=== PATIENT | female | born 1970 | race Caucasian/White ===

== ENCOUNTER 2022-09-19 02:45 | Outpatient (CLI) | payer MEDICARE, SELFPAY ==
--- NOTE | 2022-09-19 09:25 | DI.CTLCSR_ITS ---
Exam(s) CT CHEST LUNG CANCER SCREEN EXAM: CT CHEST LUNG CANCER SCREEN CLINICAL HISTORY: SCREENING FOR LUNG CA, CURRENT SMOKER, F17.210. TECHNIQUE: Imaging Protocol: Low Dose Technique CONTRAST MATERIAL: None COMPARISON: No exams were available for comparison FINDINGS: CHEST: LUNGS: There is patchy infiltrate in the anterior aspect of the right upper lobe. There is also a 7 millimeter subtle nodular infiltrate in the medial aspect of the right upper lobe adjacent to the rig ht side of the esophagus. There is mild bronchiectasis in the superior lingular segment of the left lung. No confluent infiltrate evident at this level. There are no pleural effusions on either side. No significant focal findings in the trachea and mainstem bronchi.. MEDIASTINUM: There is no obvious hilar nor mediastinal adenopathy. CARDIAC: Heart size is normal. There is no pericardial effusion.Diameter of the ascending thoracic a yuan is increased, measuring 4.3 cm. Requires follow-up. OTHER: Lower most image reveals a partially included exophytic abnormality off the lateral aspect of the right kidney, difficult to evaluate on this study given the resolution and this finding being onl y partially included in the field of view. OSSEOUS: No significant osseous lesions.. IMPRESSION: 1. Patchy right upper lobe infiltrate. Other findings as above. No pleural effusions nor obvious in trathoracic adenopathy. Recommend repeat CT scan in 6 months, earlier if clinically indicated. 2. Enlarged ascending thoracic aorta which measures 4.3 cm. Requires appropriate follow-up. Also ab normality off the lateral aspect of the right kidney which requires further workup starting with ultr asound. This was only partially included in the field of view of this chest CT scan. 3. Lung RADS Cat 3 - Probably Benign: Probably benign finding(s) - short term follow-up suggested; in clude nodules with a low likelihood of becoming a clinically active cancer. Lung-RADS 1.0 CATEGORIES: Category 0 - Prior chest CT exam(s) being located for comparison. Category 1 - Annual screening in 12 months. No nodules or definitely benign nodules. Category 2 - Annual screening in 12 months. Benign appearance. Nodules with low likelihood of becomin g active cancer. Category 3 - 6-month follow-up. Probably benign. Short-term follow-up suggested. Nodules with low lik elihood of becoming active cancer. Category 4A - 3-month follow-up and CT/PET if >8 mm in size. Suspicious finding. Findings which requi re additional testing. Category 4B - Findings which require additional testing and tissue sampling. Category 4X - Category 3 or 4 nodules with additional features or imaging findings that increases the suspicion of malignancy. Modifier S- Potentially clinically significant findings (non lung cancer) RADIATION DOSE DELIVERED: Total DLP DATA REPOSITORY: All CT scans at this facility are submitted to the National Radiology Data Registry (NRDR) Dose Index Registry (DIR) with the [employer] (A[employer]). RADIATION OPTIMIZATION: All CT scans at this facility use at least one of these dose optimization te chniques: automated exposure control; mA and/or kV adjustment per patient size (includes targeted exa ms where dose is matched to clinical indication); or iterative reconstruction.
== END 2022-09-19 03:05 ==
LOC: DI 02:46
PROVIDERS: PCP General Practice; Visit Provider Nurse Practitioner
DX: F17.210 Nicotine dependence, cigarettes, uncomplicated (principal); Z12.2 Encounter for screening for malignant neoplasm of respiratory organs; R91.8 Other nonspecific abnormal finding of lung field; I77.810 Thoracic aortic ectasia; N28.89 Other specified disorders of kidney and ureter
CPT/HCPCS: 71271

== ENCOUNTER → 2022-11-01 02:54 | Outpatient (CLI) | payer MEDICARE, SELFPAY ==
--- NOTE | 2022-11-01 | DI.US_ITS ---
Exam(s) US RENAL EXAM: US RENAL CLINICAL HISTORY: [facility] CT SCAN R93.429. TECHNIQUE: Danielson scale, color and spectral Doppler were used. COMPARISON: CT CT CHEST LUNG CANCER SCREEN from 09/19/2022 FINDINGS: Renal size in cm: Right: 9.9. Left: 10.0. Echogenicity: Normal. Hydronephrosis: No. Cyst or mass: No. Nephrolithiasis: No. Other findings: None. Bladder:Normal. Ureteral jets: Right: Visualized and unremarkable. Left: Not visualized on this examination. Prevoid vol:114 cc Postvoid vol:0 cc Renal color flow: Symmetric and within normal limits. IMPRESSION: No renal mass is seen corresponding to the abnormality seen on the CT scan from 09/19/2022. A CT scan or MRI without and with contrast of the abdomen is recommended for further evaluation. DATA REPOSITORY:
--- NOTE | 2022-11-01 11:55 | DI.US_ITS ---
APPROVED REPORT EXAM: Comprehensive 2D, Doppler, and color-flow Echocardiogram Patient Location: Out-Patient [facility] Secretary: Fabrice Lopez RDCS (AE) Indications: chest pain at rest, son Other Information Study Quality: Adequate Conclusion Mild concentric left ventricular hypertrophy. Ejection fraction is 55%. Wall motion is normal Normal right ventricular size and systolic function Both atria are normal in size There is no structural or hemodynamically significant valvular disease Estimated right ventricular systolic pressure is 19 mmHg Dilated ascending aorta measuring 4.1 cm Wall motion Left Ventricle The left ventricle is normal size. The left ventricular systolic function is normal. The left ventric ular ejection fraction is within the normal range. Mild concentric left ventricular hypertrophy. Ther e is normal LV segmental wall motion. There is no ventricular septal defect visualized. LVEF is 55%. Right Ventricle The right ventricle is normal size. The right ventricular systolic function is normal. The RVSP is 18 .8 mmHg. Atria The left atrium size is normal. The right atrium size is normal. The interatrial septum is intact wit h no evidence for an atrial septal defect. Aortic Valve The aortic valve is normal in structure. Aortic valve is trileaflet. There is no aortic valvular sten osis. No aortic regurgitation is present. Mitral Valve The mitral valve is normal in structure. No evidence of mitral valve stenosis. Mild mitral regurgitat ion. Tricuspid Valve The tricuspid valve is normal in structure. There is no tricuspid valve stenosis. Mild tricuspid regu rgitation. Pulmonic Valve The pulmonary valve is normal in structure. There is no pulmonic valvular stenosis. There is no pulmo miranda valvular regurgitation. Great Vessels The aortic root is normal in size. The ascending aorta is moderately dilated. Aortic arch is not well visualized. IVC is normal in size and collapses >50% with inspiration. Pericardium There is no pericardial effusion. 2D Dimensions IVSD d PLAX 1.04 cm F: 0.6-1.0 Ao Root d 3.13 cm F: 2.7 - 3.3 LVPW d PLAX 0.88 cm F: 0.6 - 1.0 Ao Asc Diam d 4.08 cm F: 2.3 - 3.1 LVID d PLAX 4.41 cm F: 3.8 - 5.2 LVDs 3.18 cm F: 2.2 - 3.5 LV EF Teichholz 54.1 % FS 27.77 % LV EDV (Teich) 88.1 mL LV ESV (Teich) 40.5 mL Stroke Vol Index (Teich) 27.69 M-Mode TAPSE 2.39 cm (M/F) >1.7 Auto EF LV EDV A4C 107.3 mL LV EDV A2C 96.9 mL LV EDV BP 104.8 mL LV ESV A4C 55.2 mL LV ESV A2C 47.9 mL LV ESV BP 50.6 mL LVEF(%) A4C 48.5 % LVEF(%) A2C 50.6 % LVEF(%) BP 51.7 % LV SV A4C 52.1 ml LV SV A2C 49.1 ml LV SV BP 54.2 ml LV CO A4C 4.7 L/min LV CO A2C 4.3 L/min LV CO BP 4.5 L/min HR A4C 89.79 BPM HR A2C 88.20 BPM LV EDV Index (BP) LA Volume LA Length A4C 4.4 cm LA Length A2C LA Area A4C s 9.56 cm2 LA Area A2C s LA Vol A4C A-L 17.77 mL LA Vol A2C A-L LA Vol Biplane A-L LA Vol A4C MOD 17.2 mL LA Vol A2C MOD LA Vol BP MOD RA Volume RA Area A4C 8.0 cm2 RA ESV A4C (A-L) 17.4mL RA Vol/BSA A4C A-L RA Length A4C 3.1 cm RA ESV A4C (MOD) 17.2mL LV Diastology MV E' medial 0.072 (>0.07 m/s) MV E Vmax 0.67 (0.4-1.3 m/s) MV E/E' MED 9.39 (<14) MV A Vmax 0.90 (0.4-1.3 m/s) MV E' lateral 0.078 (>0.1 m/s) E/A Ratio 0.7 MV E/E' LAT 8.64 (<14) MV E' Average 0.075 m/s MV E/E'(average) 9.00 Aortic Valve AoV Vmax 1.18 m/s LVOT Vmax 1.02 m/s AoV Peak Grad 5.6 mmHg LVOT Peak Grad 4.1 mmHg AoV Area (Vmax) 2.09 cm2 LVOT VTI 0.211 m AoV VTI 0.246 m LVOT Mean Grad 2.4 mmHg AoV Mean Duane. 0.88 m/s LVOT SV 51.40 mL AoV Mean Grad 3.5 mmHg LVOT Diam s 1.75 cm AoV Area (VTI) 2.09 cm2 Velocity Ratio 0.86 Mitral Valve MV DT 172 (160-240 msec) Pulmonary Valve PV Vmax 0.93 (0.5-1.5 m/s) RVOT Vmax 0.63 m/s PV Peak Grad 3.5 mmHg RVOT Peak Gr. 1.6 mmHg PV Mean Duane 0.70 m/s RVOT VTI 0.112 m PV Mean Grad 2.2 mmHg RVOT Mean Gr. 0.8 mmHg Tricuspid Valve RA Pressure 3.00 mmHg TR Vmax 1.99 m/s TR Peak Grad 15.8 mmHg RVSP (TR) 18.8 mmHg
== END ==
PROVIDERS: PCP General Practice; Visit Provider Nurse Practitioner
DX: R07.9 Chest pain, unspecified (principal)
CPT/HCPCS: 76770; 93306